=== PATIENT | female | born 1970 | race Caucasian/White ===

== ENCOUNTER → 2021-08-09 | Outpatient (CLI) | payer OTHER ==
[2015-12-17 07:58] VITALS: BP 155/86
[~2021-08-09] MED LIST: CARV12.5 PO; ELUX100T PO; GABA-585 PO; GLYB5TAB3 PO; HYDR1TAB10 PO; INSU100C4 SQ; INSU100V13 SQ; INSU100V8 SQ; LISI10TA16 PO; OMEP40CA2 PO; VALIUM10 MG PO
--- NOTE | 2021-08-09 14:32 | KCIC ---
INDICATION: Reason: EDEMA / Spl. Instructions: / History: Leg pain COMPARISON: None. TECHNIQUE: Grayscale, color and doppler ultrasound images were obtained of the bilateral lower extrem ity venous vasculature. Some of the calf veins are obscured RIGHT: No thrombus identified in the common femoral vein, femoral vein, popliteal vein or visualized calf ve ins. LEFT: No thrombus identified in the common femoral vein, femoral vein, popliteal vein or visualized calf ve ins. IMPRESSION: * No thrombus identified in deep venous system of bilateral lower extremities. Electronically signed by: Oliver Caruso MD (08/09/2021 2:29 PM) [id number]
== END ==
LOC: KCIC US 12:59
PROVIDERS: ATTEND Student in an Organized Health Care Education/Training Program
DX: R60.9 Edema, unspecified (principal)
CPT/HCPCS: 93970